=== PATIENT | female | born 1940 | race Caucasian/White ===

== ENCOUNTER 2022-06-03 19:29 | Emergency (ER) | payer MEDICARE ==
[2022-06-03 20:49] LABS: #Monocytes 0.7 10x3/uL (0.0-1.1); %Basophils 0.3 % (0.0-2.0); %Eosinophils 0.1 % (0.0-6.0); %Lymphocytes 6.1 % (18.0-47.0); %Monocytes 6.2 % (0.0-10.0); %Neutrophils 86.8 % (40.0-75.0); Hemoglobin 15.1 g/dL (12.0-15.5); Mean Corpuscular Hemoglobin 29.8 pg (27.0-33.0); Mean Corpuscular Volume 85.2 fl (81.6-98.3); Mean Platelet Volume 9.3 fl (7.4-10.4); Platelet Count 267 10x3/uL (150-450); RBC Distribution Width 12.4 % (11.5-14.5); Red Blood Cell (RBC) Count 5.06 10x6/uL (3.90-5.03); White Blood Cell (WBC) Count 11.5 10x3/uL (3.5-10.5)
[2022-06-03 20:50] LABS: ALT (SGPT) 7 U/L (8-55); AST (SGOT) 15 U/L (5-34); Albumin 4.4 g/dL (3.4-4.8); Alkaline Phosphatase 72 U/L (40-110); Anion Gap 17 mmol/L (10-20); BUN (Urea Nitrogen) 12 mg/dL (9.8-20.1); Bilirubin, Total 0.5 mg/dL (0.2-1.2); Calc. Creatinine Clearance 0 mL/min (70-130); Calcium 9.7 mg/dL (7.8-10.44); Carbon Dioxide 23 mmol/L (23-31); Chloride 92 mmol/L (98-107); Estimated GFR 87; Globulin 3.2 g/dL (2.4-3.5); Glucose 129 mg/dL (83-110); Potassium 3.7 mmol/L (3.5-5.1); Protein, Total 7.6 g/dL (5.8-8.1); Sodium 128 mmol/L (136-145)
[2022-06-03] MEDS ORDERED: Ondansetron ODT 4 MG TAB ONE (20:59)
== END 2022-06-03 22:48 | disposition home or self-care (01) ==
LOC: CSHERS 19:29
DX: S06.0X0A Concussion without loss of consciousness, initial encounter (principal); S40.811A Abrasion of right upper arm, initial encounter; R11.2 Nausea with vomiting, unspecified; E87.1 Hypo-osmolality and hyponatremia; E78.00 Pure hypercholesterolemia, unspecified; I10 Essential (primary) hypertension; W22.8XXA Striking against or struck by other objects, initial encounter
CPT/HCPCS: 72125; 80053; 85025; 93005; Q0162

== ENCOUNTER 2024-01-17 19:33 | Inpatient (IN) | payer MEDICARE ==
[2024-01-17] MEDS ORDERED: hydrALAZINE 20 MG/ML VIAL ONE (20:06)
[2024-01-17 20:16] LABS: #Basophils 0.07 10x3/uL (0.0-0.2); #Eosinphils 0.24 10x3/uL (0.0-0.5); #Monocytes 0.99 10x3/uL (0.0-1.1); #Neutrophils 5.64 10x3/uL (1.5-8.4); %Basophils 0.8 % (0.0-2.0); %Eosinophils 2.9 % (0.0-6.0); %Lymphocytes 15.8 % (18.0-47.0); %Neutrophils 68.3 % (40.0-75.0); Hematocrit 36.7 % (34.9-44.5); Hemoglobin 13.2 g/dL (12.0-15.5); Mean Corpuscular Hemoglobin 29.3 pg (27.0-33.0); Mean Corpuscular Volume 81.4 fL (81.6-98.3); Mean Platelet Volume 9.3 fL (7.4-10.4); Platelet Count 290 10x3/uL (150-450); Red Blood Cell (RBC) Count 4.51 10x6/uL (3.90-5.03); White Blood Cell (WBC) Count 8.3 10x3/uL (3.5-10.5)
[2024-01-17 20:28] LABS: ALT (SGPT) 8 U/L (8-55); AST (SGOT) 16 U/L (5-34); Albumin 3.8 g/dL (3.4-4.8); Alkaline Phosphatase 62 U/L (40-110); Anion Gap 13 mmol/L (10-20); BUN (Urea Nitrogen) 15 mg/dL (9.8-20.1); Bilirubin, Total 0.3 mg/dL (0.2-1.2); Calc. Creatinine Clearance 0 mL/min (70-130); Calcium 9.5 mg/dL (7.8-10.44); Carbon Dioxide 26 mmol/L (23-31); Chloride 91 mmol/L (98-107); Estimated GFR 73; Globulin 2.5 g/dL (2.4-3.5); Glucose 106 mg/dL (83-110); Magnesium 1.8 mg/dL (1.6-2.6); Potassium 4.3 mmol/L (3.5-5.1); Protein, Total 6.3 g/dL (5.8-8.1); Sodium 126 mmol/L (136-145)
[2024-01-17 20:33] LABS: Troponin I Less than 0.010 ng/mL (< 0.028)
[2024-01-17 21:05] LABS: Bilirubin Neg (Negative); Blood, Urine Negative (Negative); Clarity Clear (Clear); Glucose, Urine (Dipstick) Normal (Negative); Ketone, Urine Negative (Negative); Leukocyte Negative (Negative); Nitrite Negative (Negative); Protein, Urine (Dipstick) Negative (Neg-Trace); Urobilinogen Normal mg/dL (Less than 2)
[2024-01-17 21:17] LABS: CAUTI Indications for Culture Alt mental st,lethar; RBC/HPF 0-3 HPF (0-3); Squamous Epithelial 0-3 HPF (0-3); WBC/HPF 0-3 HPF (0-3)
[2024-01-17 21:18] LABS: Bacteria/HPF Rare-Few HPF (None Seen); Urine Culture Reflex No No
[2024-01-17] MEDS ORDERED: Polyethylene Glycol 3350 17 GM Packet PO PRN (23:04)
[2024-01-18] MEDS: Carvedilol 3.125 MG TAB PO SCH ×2 (00:05→08:09)
[2024-01-18] MEDS: Atorvastatin Calcium 40 MG TAB PO SCH ×2 (00:05→20:23)
[2024-01-18 00:35] VITALS: BMI 24.2
[2024-01-18] MEDS: Sodium Chloride 0.9% 1,000 ML IV SCH ×2 (00:50→10:16)
[2024-01-18] MEDS: Melatonin 3 MG TAB PO SCH (01:01)
[2024-01-18 03:55] LABS: Anion Gap 11 mmol/L (10-20); BUN (Urea Nitrogen) 11 mg/dL (9.8-20.1); Calc. Creatinine Clearance 52 mL/min (70-130); Calcium 8.8 mg/dL (7.8-10.44); Carbon Dioxide 23 mmol/L (23-31); Chloride 98 mmol/L (98-107); Estimated GFR 86; Glucose 106 mg/dL (83-110); Magnesium 1.6 mg/dL (1.6-2.6); Sodium 128 mmol/L (136-145)
[2024-01-18 03:57] LABS: #Basophils 0.04 10x3/uL (0.0-0.2); #Eosinphils 0.29 10x3/uL (0.0-0.5); #Monocytes 1.12 10x3/uL (0.0-1.1); #Neutrophils 6.23 10x3/uL (1.5-8.4); %Basophils 0.4 % (0.0-2.0); %Lymphocytes 19.2 % (18.0-47.0); %Monocytes 11.7 % (0.0-10.0); %Neutrophils 65.3 % (40.0-75.0); Mean Corpuscular HGB CONC 34.3 g/dL (32.0-36.0); Mean Corpuscular Hemoglobin 28.4 pg (27.0-33.0); Mean Corpuscular Volume 82.9 fL (81.6-98.3); Mean Platelet Volume 9.4 fL (7.4-10.4); Platelet Count 239 10x3/uL (150-450); RBC Distribution Width 12.3 % (11.5-14.5); Red Blood Cell (RBC) Count 4.22 10x6/uL (3.90-5.03); White Blood Cell (WBC) Count 9.6 10x3/uL (3.5-10.5)
[2024-01-18] MEDS: BuPROPion XL 150 MG ER.TAB PO SCH (08:09)
[2024-01-18] MEDS: Enoxaparin 40 MG (0.4 mL) SYRINGE SC SCH (08:09)
[2024-01-18] MEDS ORDERED: Non-Formulary Medication 1 EACH (Losartan/Hydrochlorothiazide [Losartan-Hctz 100-25 Mg Tab PO SCH (09:00)
[2024-01-18 12:22] VITALS: BMI 24.2
[2024-01-19 03:53] LABS: #Basophils 0.03 10x3/uL (0.0-0.2); #Eosinphils 0.31 10x3/uL (0.0-0.5); #Monocytes 0.84 10x3/uL (0.0-1.1); #Neutrophils 3.88 10x3/uL (1.5-8.4); %Basophils 0.5 % (0.0-2.0); %Eosinophils 4.7 % (0.0-6.0); %Lymphocytes 22.4 % (18.0-47.0); %Monocytes 12.8 % (0.0-10.0); %Neutrophils 59.3 % (40.0-75.0); Hematocrit 33.7 % (34.9-44.5); Hemoglobin 11.6 g/dL (12.0-15.5); Mean Corpuscular HGB CONC 34.4 g/dL (32.0-36.0); Mean Corpuscular Hemoglobin 28.6 pg (27.0-33.0); Mean Corpuscular Volume 83.2 fL (81.6-98.3); Mean Platelet Volume 9.2 fL (7.4-10.4); Platelet Count 226 10x3/uL (150-450); RBC Distribution Width 12.3 % (11.5-14.5); Red Blood Cell (RBC) Count 4.05 10x6/uL (3.90-5.03); White Blood Cell (WBC) Count 6.6 10x3/uL (3.5-10.5)
[2024-01-19 04:01] LABS: Anion Gap 12 mmol/L (10-20); BUN (Urea Nitrogen) 8 mg/dL (9.8-20.1); Calc. Creatinine Clearance 56 mL/min (70-130); Calcium 8.6 mg/dL (7.8-10.44); Carbon Dioxide 20 mmol/L (23-31); Chloride 101 mmol/L (98-107); Estimated GFR 87; Glucose 94 mg/dL (83-110); Potassium 4.1 mmol/L (3.5-5.1); Sodium 129 mmol/L (136-145)
[2024-01-19] MEDS: Losartan 25 MG TAB PO SCH (07:53)
[2024-01-19] MEDS ORDERED: Losartan 25 MG TAB PO SCH (09:00)
[2024-01-19 16:05] VITALS: BP 161/89; TEMP 98.2
[2024-01-20] MEDS ORDERED: SYNTHROID PO SCH (06:00)
== END 2024-01-19 17:00 | DRG 641 ==
LOC: CSHERS 19:33 → CSHTELE 22:37 → OBSVTOIN 01-18 10:11
PROVIDERS: ADMIT Family Medicine; ATTEND Internal Medicine
DX: E87.1 Hypo-osmolality and hyponatremia (principal); E86.1 Hypovolemia; E78.00 Pure hypercholesterolemia, unspecified; M47.812 Spondylosis without myelopathy or radiculopathy, cervical region; I10 Essential (primary) hypertension; I95.1 Orthostatic hypotension; E03.9 Hypothyroidism, unspecified; R63.8 Other symptoms and signs concerning food and fluid intake; M47.816 Spondylosis without myelopathy or radiculopathy, lumbar region; Z74.09 Other reduced mobility; Z79.890 Hormone replacement therapy; Z90.89 Acquired absence of other organs; Z90.710 Acquired absence of both cervix and uterus; Z90.721 Acquired absence of ovaries, unilateral; Z90.49 Acquired absence of other specified parts of digestive tract; Z79.899 Other long term (current) drug therapy
CPT/HCPCS: 36415; 80048; 80053; 81001; 83615; 83735; 83930; 83935; 84300; 84439; 84443; 84484; 85025; 93005; 93010; 96372; 96374; G0378; J0360; J1650; J7050

== ENCOUNTER 2024-06-21 22:15 | Emergency (ER) | payer MEDICARE ==
[2024-06-21 22:46] LABS: #Basophils 0.04 10x3/uL (0.0-0.2); #Monocytes 0.82 10x3/uL (0.0-1.1); #Neutrophils 6.41 10x3/uL (1.5-8.4); %Basophils 0.5 % (0.0-2.0); %Eosinophils 2.3 % (0.0-6.0); %Monocytes 9.4 % (0.0-10.0); %Neutrophils 73.3 % (40.0-75.0); Hematocrit 40.5 % (34.9-44.5); Hemoglobin 13.7 g/dL (12.0-15.5); Mean Corpuscular HGB CONC 33.8 g/dL (32.0-36.0); Mean Corpuscular Hemoglobin 28.5 pg (27.0-33.0); Mean Corpuscular Volume 84.4 fL (81.6-98.3); RBC Distribution Width 11.9 % (11.5-14.5); White Blood Cell (WBC) Count 8.7 10x3/uL (3.5-10.5)
[2024-06-21 22:52] LABS: Mean Platelet Volume 9.7 fL (7.4-10.4); Platelet Count 256 10x3/uL (150-450)
[2024-06-21 23:04] LABS: Troponin I Less than 0.010 ng/mL (< 0.028)
[2024-06-21 23:07] LABS: ALT (SGPT) 24 U/L (8-55); AST (SGOT) 24 U/L (5-34); Albumin 3.9 g/dL (3.4-4.8); Alkaline Phosphatase 61 U/L (40-110); Anion Gap 19 mmol/L (10-20); BUN (Urea Nitrogen) 18 mg/dL (9.8-20.1); Bilirubin, Total 0.4 mg/dL (0.2-1.2); Calc. Creatinine Clearance 0 mL/min (70-130); Calcium 9.7 mg/dL (7.8-10.44); Carbon Dioxide 21 mmol/L (23-31); Chloride 94 mmol/L (98-107); Estimated GFR 76; Globulin 3.1 g/dL (2.4-3.5); Glucose 122 mg/dL (83-110); Magnesium 1.9 mg/dL (1.6-2.6); Potassium 5.1 mmol/L (3.5-5.1); Sodium 129 mmol/L (136-145)
[2024-06-21] MEDS ORDERED: Ondansetron ODT 4 MG TAB ONE (23:27)
[2024-06-21] MEDS ORDERED: hydrALAZINE 25 MG TAB ONE (23:27)
[2024-06-22 00:17] LABS: Bilirubin Neg (Negative); Blood, Urine 25 (Negative); Clarity Clear (Clear); Glucose, Urine (Dipstick) Normal (Negative); Ketone, Urine Negative (Negative); Leukocyte Negative (Negative); Nitrite Negative (Negative); Protein, Urine (Dipstick) Negative (Neg-Trace); Urobilinogen Normal mg/dL (Less than 2)
[2024-06-22 00:37] LABS: Bacteria/HPF None Seen HPF (None Seen); CAUTI Indications for Culture Alt mental st,lethar; Squamous Epithelial 0-3 HPF (0-3); Transitional Epithelial 0-3 HPF (None Seen); WBC/HPF 0-3 HPF (0-3)
[2024-06-22 00:39] LABS: Urine Culture Reflex No No
== END 2024-06-22 01:14 | disposition home or self-care (01) ==
LOC: CSHERS 22:15
DX: R53.1 Weakness (principal); I10 Essential (primary) hypertension; E87.1 Hypo-osmolality and hyponatremia; E78.00 Pure hypercholesterolemia, unspecified; Z79.899 Other long term (current) drug therapy; Z55.6 Problems related to health literacy
CPT/HCPCS: 51701; 80053; 81001; 83735; 84484; 85025; 87086; 93005; 99285; Q0162